=== PATIENT | female | born 1980 ===

== ENCOUNTER 2016-08-13 12:16 | Emergency (ER) | payer OTHER, SELFPAY ==
[2016-08-13 12:16] VITALS: BMI 36.6
[2016-08-13 12:30] VITALS: RESP 18; TEMP 99
--- NOTE | 2016-08-13 12:37 | ED PDOC ---
HPI: Female Pain Time Seen by Provider: 08/13/16 12:36 Chief Complaint (Nursing): Female Genitourinary Chief Complaint (Provider): with pain and bleeding History Per: Patient Additional Complaint(s): 36 year old female , currently (? weeks) presents to ED with cramping abd pain and vaginal bleeding that started today. Patient went to a new primary doctor today and test was positive so she was sent to ED for rule out threatened . She states the pain comes and goes in waves and currently she has no pain. She states bleeding has been light since this morning. She has no history of previous miscarriages or ectopic . Past Medical History Reviewed: Historical Data, Nursing Documentation, Vital Signs Vital Signs: Last Vital Signs Temp 99 F 08/13/16 12:28 Pulse 72 08/13/16 12:28 Resp 18 08/13/16 12:28 BP 134/89 08/13/16 12:28 Pulse Ox 100 08/13/16 12:28 - Medical History PMH: Migraine - Surgical History Surgical History: (x 1) - Family History Family History: States: No Known Family Hx - Living Arrangements Living Arrangements: With Family - Social History Current smoker - smoking cessation education provided: No Alcohol: None Drugs: Denies - Home Medications Home Medications: Ambulatory Orders Medication Instructions Recorded Acetaminophen/Hydrocodone Bi 1 tab PO QID PRN #10 tab 10/10/14 [Vicodin 300 mg-5 mg] Ciprofloxacin HCl [Cipro] 500 mg PO BID 10 Days 10/10/14 Metronidazole [Flagyl] 500 mg PO QID 10 Days 10/10/14 Unobtainable 11/22/15 - Allergies Allergies/Adverse Reactions: Allergies Allergy/AdvReac Type Severity Reaction Status Date / Time No Known Allergies Allergy Verified 10/10/14 05:56 Review of Systems ROS Statement: Except As Marked, All Systems Reviewed And Found Negative Genitourinary Female: Positive for: Vaginal Bleeding, Pelvic Pain, Other (? weeks with abdominal pain) Physical Exam - Reviewed Nursing Documentation Reviewed: Yes Vital Signs Reviewed: Yes - Physical Exam Appears: Positive for: Well, Non-toxic, No Acute Distress Cardiovascular/Chest: Positive for: Regular Rate, Rhythm Respiratory: Positive for: Normal Breath Sounds Gastrointestinal/Abdominal: Positive for: Soft, Other (obese nontender abdomen) . Negative for: Tenderness, Distended, Guarding, Rebound Extremity: Negative for: Pedal Edema Neurologic/Psych: Positive for: Alert, Oriented - Laboratory Results Result Diagrams: 08/13/16 13:12 08/13/16 13:12 Urine POC: Negative - ECG O2 Sat by Pulse Oximetry: 100 Pulse Ox Interpretation: Normal - Other Rad OB TV US X-Ray: Read By Radiologist X-Ray Interpretation: see below Medical Decision Making Medical Decision Makin36 year old female, with abbdominal pain Plan: Urine dip and test CBC CMP Blood type IVF OB US Urine test is negative, serum beta is negative. US: IMPRESSION: 3.8 x 2.5 centimeter cystic lesion at the left adnexa. Follow- up reassessment is suggested. Retroverted uterus. Patient is aware of diagnostic test results, all questions answered. Patient was referred to women's clinic for follow Disposition - Clinical Impression Clinical Impression: Vaginal bleeding, Ovarian cyst - Patient ED Disposition Is Patient to be Admitted: No Counseled Patient/Family Regarding: Studies Performed, Diagnosis, Need For Followup - Disposition Referrals: [facility] [Outside] Disposition: Routine/Home Disposition Time: 15:54 Condition: STABLE Additional Instructions: Tylenol for pain as needed. Follow-up with women's clinic. Instructions: Ovarian Cyst (ED), Dysfunctional Uterine Bleeding (ED) Print Language: CHINESE Results - Lab Results Lab Results: 08/13/16 08/13/16 08/13/16 13:12 13:12 13:12 WBC 10.1 RBC 4.07 Hgb 12.6 Hct 37.6 MCV 92.5 MCH 30.9 MCHC 33.5 RDW 13.4 Plt Count 200 MPV 9.4 Neut % (Auto) 49.6 L Lymph % (Auto) 29.1 [place] % (Auto) 4.8 Eos % (Auto) 15.9 H Baso % (Auto) 0.6 Neut # 5.0 Lymph # 2.9 [place] # 0.5 Eos # 1.6 H Baso # 0.1 Sodium 140 Potassium 4.2 Chloride 108 H Carbon Dioxide 23 Anion Gap 13 BUN 11 Creatinine 0.6 L Est GFR ( Amer) > 60 Est GFR (Non-Af Amer) > 60 Random Glucose 95 Calcium 9.5 Total Bilirubin 0.4 AST 20 ALT 23 Alkaline Phosphatase 71 Total Protein 7.3 Albumin 4.1 Globulin 3.2 Albumin/Globulin Ratio 1.3 Beta HCG, Quant < 2.39 Blood Type O POSITIVE Antibody Screen Negative BBK History Checked Patient has bt
[2016-08-13] MEDS ORDERED: Sodium Chloride 0.9% 1,000 ML IV STA (13:01)
[2016-08-13 13:30] LABS: BASO # 0.1 K/uL (0.0-0.2); BASO % 0.6 % (0.0-2.0); EOS # 1.6 K/uL (0.0-0.7); EOS % 15.9 % (0.0-4.0); HEMATOCRIT 37.6 % (34.0-47.0); LYMPH # 2.9 K/uL (1.0-4.3); LYMPH % 29.1 % (20.0-40.0); MEAN CELL VOLUME 92.5 fl (81.0-99.0); MEAN CORPUSCULAR HEMOGLOBIN 30.9 pg (27.0-31.0); MEAN CORPUSCULAR HGB CONC 33.5 g/dL (33.0-37.0); MEAN PLATELET VOLUME 9.4 fl (7.2-11.7); MONO # 0.5 K/uL (0.0-0.8); MONO % 4.8 % (0.0-10.0); NEUT % 49.6 % (50.0-75.0); RED CELL DISTRIBUTION WIDTH 13.4 % (11.5-14.5); WHITE BLOOD COUNT 10.1 K/uL (4.8-10.8)
[2016-08-13 14:07] LABS: CHLORIDE 108 mmol/L (98-107)
[2016-08-13 14:08] LABS: POTASSIUM 4.2 MMOL/L (3.6-5.0); SODIUM 140 mmol/l (132-148)
[2016-08-13 14:10] LABS: AST/SGOT 20 U/L (14-36); BILIRUBIN,TOTAL 0.4 mg/dl (0.2-1.3); CARBON DIOXIDE 23 mmol/L (22-30); GFR AFRICAN-AMERICAN > 60
[2016-08-13 14:11] LABS: ALB/GLOB RATIO 1.3 (1.0-2.1); ALKALINE PHOSPHATASE 71 U/L (38-126); ALT/SGPT 23 U/L (9-52); BLOOD UREA NITROGEN 11 mg/dl (7-17); CALCIUM 9.5 mg/dL (8.4-10.2); GLUCOSE,RANDOM 95 mg/dL (65-105); TOTAL PROTEIN 7.3 G/DL (6.3-8.2)
--- NOTE | 2016-08-13 15:00 | US ---
HISTORY: early , pain and bleeding, ? weeks COMPARISON: Comparison is made to the previous study dated 10/10/2014 TECHNIQUE: Endovaginal ultrasound examination of the pelvis FINDINGS: UTERUS: Measures 7.4 x 5.7 x 4.4 cm. Retroverted uterus but otherwise normal in size and appearance. No fibroid or other mass lesion seen. ENDOMETRIUM: Measures 4.2 mm in diameter. Unremarkable. CERVIX: No cervical abnormality identified. RIGHT OVARY: Measures 2.6 x 1.8 x 1.9 cm. No solid mass. Normal flow. LEFT OVARY: Measures 3.1 x 4.7 x 3.4 cm. No solid mass. Normal flow. There is anechoic cystic lesion at the left adnexa measures 2.5 x 3.8 x 2.6 cm. FREE FLUID: No significant free fluid noted. OTHER FINDINGS: None. IMPRESSION: 3.8 x 2.5 centimeter cystic lesion at the left adnexa. Follow-up reassessment is suggested. Retroverted uterus.
[2016-08-13 16:09] VITALS: BP 110/68; PULSE 82; O2SAT 99
== END 2016-08-13 16:09 | disposition home or self-care (01) ==
LOC: H.ER 12:16
DX: O26.891 Other specified pregnancy related conditions, first trimester (principal); N83.209 Unspecified ovarian cyst, unspecified side

== ENCOUNTER 2016-09-21 21:58 | Emergency (ER) | payer OTHER ==
[2016-09-21 21:58] VITALS: BMI 36.6
[2016-09-21 22:16] VITALS: BP 125/72; PULSE 70; RESP 16; TEMP 98.1; O2SAT 99
--- NOTE | 2016-09-21 22:53 | ED PDOC ---
HPI: General Adult Time Seen by Provider: 09/21/16 22:24 Chief Complaint (Nursing): Headache Chief Complaint (Provider): LONGO History Per: Patient History/Exam Limitations: no limitations Additional Complaint(s): 36yo F in ED for eval of left sided eye redness, migraine and rash to [place] with body aches, malaise an subjective fever x 1 days without sick contacts. states she has traveled outside the country, no abd pain, cough, rhionorrhea, change in BM, hematuira. admits to hx of migraines. today without the worst LONGO of her life, no nausea vomiting vision changes. Past Medical History Reviewed: Historical Data, Nursing Documentation, Vital Signs Vital Signs: Last Vital Signs Temp 98.1 F 09/21/16 22:14 Pulse 70 09/21/16 22:14 Resp 16 09/21/16 22:14 BP 125/72 09/21/16 22:14 Pulse Ox 99 09/21/16 22:14 - Medical History PMH: Migraine - Surgical History Surgical History: (x 1) - Family History Family History: States: No Known Family Hx - Immunization History Hx Tetanus Toxoid Vaccination: Yes Hx Influenza Vaccination: No Hx Pneumococcal Vaccination: No - Home Medications Home Medications: Ambulatory Orders Medication Instructions Recorded Acetaminophen/Hydrocodone Bi 1 tab PO QID PRN #10 tab 10/10/14 [Vicodin 300 mg-5 mg] Ciprofloxacin HCl [Cipro] 500 mg PO BID 10 Days 10/10/14 Metronidazole [Flagyl] 500 mg PO QID 10 Days 10/10/14 Polymyxin/Trimethoprim Sulfate 1 - 2 drop OD DAILY #1 bottle 09/21/16 [Polytrim Ophth Soln] SUMAtriptan [Imitrex] 50 mg PO DAILY PRN #30 tab 09/21/16 - Allergies Allergies/Adverse Reactions: Allergies Allergy/AdvReac Type Severity Reaction Status Date / Time No Known Allergies Allergy Verified 10/10/14 05:56 Review of Systems ROS Statement: Except As Marked, All Systems Reviewed And Found Negative Constitutional: Positive for: Fever, Chills, Malaise Eyes: Positive for: Redness Physical Exam - Reviewed Nursing Documentation Reviewed: Yes Vital Signs Reviewed: Yes - Physical Exam Appears: Positive for: Non-toxic, No Acute Distress Head Exam: Positive for: ATRAUMATIC, NORMAL INSPECTION, NORMOCEPHALIC Skin: Positive for: Warm, Rash (papaular rash noted to face b/l no vesicles noted non itchy no excoriation and nontender) Eye Exam: Positive for: EOMI, PERRL, Conjunctival injection (left side) ENT: Positive for: Normal ENT Inspection, TM Is/Are (NAD). Negative for: Sinus Pain/Drainage, Nasal Congestion, Pharyngeal Erythema, Tonsillar Exudate, Tonsillar Swelling Neck: Positive for: Normal, Painless ROM Cardiovascular/Chest: Positive for: Regular Rate, Rhythm Respiratory: Positive for: CNT, Normal Breath Sounds Gastrointestinal/Abdominal: Positive for: Normal Exam, Bowel Sounds, Soft. Negative for: Tenderness Neurologic/Psych: Positive for: Alert, contract attorney II-XII (intact), Oriented, Cerebellar Tests (normal), Gait (intact). Negative for: Motor/Sensory Deficits - ECG O2 Sat by Pulse Oximetry: 99 Medical Decision Making Medical Decision Making: impression: Viral illness, [place] lamp wth stain- negative for uptake no corneal ulceration noted. lid inversion performed no FFB noted. pt given polytrim and imitrexs req. by pt) for Migraines. advised to have pmd f.u pt with stable vS Disposition - Clinical Impression Clinical Impression: Viral infection, Headache - Patient ED Disposition Is Patient to be Admitted: No Counseled Patient/Family Regarding: Diagnosis, Need For Followup, Rx Given - Disposition Referrals: [facility] [Outside] Disposition: Routine/Home Disposition Time: 22:44 Condition: STABLE Prescriptions: Polymyxin/Trimethoprim Sulfate [Polytrim Ophth Soln] 1 - 2 drop OD DAILY #1 bottle SUMAtriptan [Imitrex] 50 mg PO DAILY PRN #30 tab PRN Reason: Headache Instructions: Viral Syndrome (ED) Print Language: GREENLANDIC
== END 2016-09-21 23:02 | disposition home or self-care (01) ==
LOC: H.ER 21:58
DX: R51 Headache (principal); B34.9 Viral infection, unspecified; R21 Rash and other nonspecific skin eruption; R50.9 Fever, unspecified

== ENCOUNTER 2016-12-10 07:12 | Emergency (ER) | payer SELFPAY ==
[2016-12-10 07:12] VITALS: BMI 36.6
[2016-12-10 07:40] VITALS: TEMP 98
[2016-12-10] MEDS ORDERED: Sodium Chloride 0.9% 1,000 ML IV STA (07:55)
--- NOTE | 2016-12-10 07:59 | ED PDOC ---
HPI: Abdomen Time Seen by Provider: 12/10/16 07:50 Chief Complaint (Nursing): Abdominal Pain Chief Complaint (Provider): Abdominal Pain History Per: Patient History/Exam Limitations: no limitations Onset/Duration Of Symptoms: Days (x5 days) Current Symptoms Are (Timing): Still Present Additional Complaint(s): 36 y/o female presents to the emergency department with an epigastric abdominal pain associated with nausea and diarrhea since 12/06/2016. Denies fever or bloody stools. Past Medical History Reviewed: Historical Data, Nursing Documentation, Vital Signs Vital Signs: Last Vital Signs Temp 98.0 F 12/10/16 07:38 Pulse 66 12/10/16 07:38 Resp 19 12/10/16 07:38 BP 123/61 12/10/16 07:38 Pulse Ox 100 12/10/16 08:01 - Medical History PMH: Migraine - Surgical History Surgical History: (x 1) - Family History Family History: States: Unknown Family Hx - Immunization History Hx Tetanus Toxoid Vaccination: Yes Hx Influenza Vaccination: No Hx Pneumococcal Vaccination: No - Home Medications Home Medications: Ambulatory Orders Medication Instructions Recorded Acetaminophen/Hydrocodone Bi 1 tab PO QID PRN #10 tab 10/10/14 [Vicodin 300 mg-5 mg] Ciprofloxacin HCl [Cipro] 500 mg PO BID 10 Days 10/10/14 Metronidazole [Flagyl] 500 mg PO QID 10 Days 10/10/14 Polymyxin/Trimethoprim Sulfate 1 - 2 drop OD DAILY #1 bottle 09/21/16 [Polytrim Ophth Soln] SUMAtriptan [Imitrex] 50 mg PO DAILY PRN #30 tab 09/21/16 Ondansetron [Zofran] 4 mg PO Q8H #10 tab 12/10/16 Pantoprazole Sodium [Protonix] 40 mg PO DAILY #30 tablet. 12/10/16 - Allergies Allergies/Adverse Reactions: Allergies Allergy/AdvReac Type Severity Reaction Status Date / Time No Known Allergies Allergy Verified 10/10/14 05:56 Review of Systems ROS Statement: Except As Marked, All Systems Reviewed And Found Negative Constitutional: Negative for: Fever Gastrointestinal: Positive for: Nausea, Abdominal Pain (Epigastric region), Diarrhea. Negative for: Hematochezia Physical Exam - Reviewed Nursing Documentation Reviewed: Yes Vital Signs Reviewed: Yes - Physical Exam Appears: Positive for: Non-toxic, No Acute Distress Head Exam: Positive for: ATRAUMATIC, NORMAL INSPECTION, NORMOCEPHALIC Skin: Positive for: Normal Color, Warm, Dry Neck: Positive for: Normal, Supple Cardiovascular/Chest: Positive for: Regular Rate, Rhythm. Negative for: Murmur Respiratory: Positive for: Normal Breath Sounds. Negative for: Accessory Muscle Use, Respiratory Distress Gastrointestinal/Abdominal: Positive for: Soft, Tenderness (Mild epigastric tenderness). Negative for: Normal Exam Neurologic/Psych: Positive for: Alert, Oriented (x3) - Laboratory Results Result Diagrams: 12/10/16 08:24 12/10/16 08:53 - ECG O2 Sat by Pulse Oximetry: 100 (RA) Pulse Ox Interpretation: Normal Medical Decision Making Medical Decision Making: Time: 07:55 Initial impression: Abdominal Pain Initial plan: --CMP --Urine DIP & Preg --CBC w/ diff --Bentyl 10 mg PO --Pepcid 20 mg IVP --Zofran 4 mg IVP --Sodium Chloride 1L IV 100 mls/hr --Reevaluation Scribe Attestation: Documented by Becca Flores, acting as a scribe for Dick Robin MD. Provider Scribe Attestation: All medical record entries made by the Scribe were at my direction and personally dictated by me. I have reviewed the chart and agree that the record accurately reflects my personal performance of the history, physical exam, medical decision making, and the department course for this patient. I have also personally directed, reviewed, and agree with the discharge instructions and disposition. Disposition - Clinical Impression Clinical Impression: Gastritis - Patient ED Disposition Is Patient to be Admitted: No - Disposition Referrals: FAMILY PROVIDER,NO [Primary Care Provider] - Disposition: Routine/Home Disposition Time: 10:59 Condition: FAIR Prescriptions: Ondansetron [Zofran] 4 mg PO Q8H #10 tab Pantoprazole Sodium [Protonix] 40 mg PO DAILY #30 tablet. Instructions: Gastritis (ED) Forms: [employer] (Rwandan)
[2016-12-10 08:28] LABS: BASO # 0.1 K/uL (0.0-0.2); BASO % 0.7 % (0.0-2.0); EOS # 0.9 K/uL (0.0-0.7); EOS % 10.8 % (0.0-4.0); HEMATOCRIT 36.9 % (34.0-47.0); LYMPH # 2.8 K/uL (1.0-4.3); LYMPH % 32.6 % (20.0-40.0); MEAN CORPUSCULAR HEMOGLOBIN 31.3 pg (27.0-31.0); MEAN CORPUSCULAR HGB CONC 34.1 g/dL (33.0-37.0); MEAN PLATELET VOLUME 9.6 fl (7.2-11.7); MONO # 0.5 K/uL (0.0-0.8); MONO % 5.3 % (0.0-10.0); NEUT # 4.4 K/uL (1.8-7.0); NEUT % 50.6 % (50.0-75.0); WHITE BLOOD COUNT 8.7 K/uL (4.8-10.8)
[2016-12-10 09:11] LABS: ALB/GLOB RATIO 1.4 (1.0-2.1); ALKALINE PHOSPHATASE 53 U/L (38-126); ALT/SGPT 24 U/L (9-52); AST/SGOT 20 U/L (14-36); BILIRUBIN,TOTAL 0.5 mg/dl (0.2-1.3); BLOOD UREA NITROGEN 9 mg/dl (7-17); CALCIUM 9.5 mg/dL (8.4-10.2); CARBON DIOXIDE 25 mmol/L (22-30); CHLORIDE 107 mmol/L (98-107); GFR AFRICAN-AMERICAN > 60; GLUCOSE,RANDOM 84 mg/dL (65-105); POTASSIUM 4.8 MMOL/L (3.6-5.0); SODIUM 141 mmol/l (132-148); TOTAL PROTEIN 7.3 G/DL (6.3-8.2)
[2016-12-10 11:20] VITALS: BP 114/67; PULSE 61; RESP 16; O2SAT 99
== END 2016-12-10 11:19 | disposition home or self-care (01) ==
LOC: H.ER 07:12 → SUPCPDRO 07:12 → H.ER 11:19
DX: K29.70 Gastritis, unspecified, without bleeding (principal)
CPT/HCPCS: 80053; 81025; 85025; 96361; 96374; 96375; 99284; J2405; J7040

== ENCOUNTER 2017-10-04 20:26 | Emergency (ER) | payer SELFPAY ==
[2017-10-04 20:26] VITALS: BMI 36.6
[2017-10-04 20:36] VITALS: RESP 18; TEMP 98.7; O2SAT 100
[2017-10-04] MEDS ORDERED: Magnesium Sulfate 2 gm/50 ml 2 GM/50 ML BAG IV STA (21:07)
[2017-10-04] MEDS ORDERED: Sodium Chloride 0.9% 1,000 ML IV STA (21:07)
[2017-10-04] MEDS ORDERED: Magnesium Sulfate 2 gm/50 ml 2 GM/50 ML BAG ONE (21:34)
--- NOTE | 2017-10-04 21:42 | ED PDOC ---
HPI: Headache Time Seen by Provider: 10/04/17 20:39 Chief Complaint (Nursing): Headache Chief Complaint (Provider): Headache History Per: Patient History/Exam Limitations: no limitations Onset/Duration Of Symptoms: Days (x1) Current Symptoms Are (Timing): Still Present Quality: "Pain" Additional Complaint(s): 37 year old female with a history of migraines presents to the ED with a headache that developed this morning. She reports she took imitrex with minimal relief. Patient states that headache is 8 out of 10 in severity. Headache is consistent with past migraines. She has photosensitivity and nausea but denies vomiting, neck pain, fever, cough, chest pain, shortness of breath, or other medical complaints. PMD: Dr. Joce Hendrickson Past Medical History Reviewed: Historical Data, Nursing Documentation, Vital Signs Vital Signs: Last Vital Signs Temp 98.7 F 10/04/17 20:32 Pulse 72 10/04/17 20:32 Resp 18 10/04/17 20:32 BP 152/82 H 10/04/17 20:32 Pulse Ox 100 10/04/17 20:32 - Medical History PMH: Migraine - Surgical History Surgical History: (x 1) - Family History Family History: States: Unknown Family Hx - Social History Current smoker - smoking cessation education provided: No Ex-Smoker (has not smoked in the last 12 months): No Alcohol: None Drugs: Denies - Immunization History Hx Tetanus Toxoid Vaccination: Yes Hx Influenza Vaccination: No Hx Pneumococcal Vaccination: No - Home Medications Home Medications: Ambulatory Orders Medication Instructions Recorded Acetaminophen/Hydrocodone Bi 1 tab PO QID PRN #10 tab 10/10/14 [Vicodin 300 mg-5 mg] Ciprofloxacin HCl [Cipro] 500 mg PO BID 10 Days tab 10/10/14 Metronidazole [Flagyl] 500 mg PO QID 10 Days tab 10/10/14 Polymyxin/Trimethoprim Sulfate 1 - 2 drop OD DAILY #1 bottle 09/21/16 [Polytrim Ophth Soln] SUMAtriptan [Imitrex] 50 mg PO DAILY PRN #30 tab 09/21/16 Ondansetron [Zofran] 4 mg PO Q8H #10 tab 12/10/16 Pantoprazole Sodium [Protonix] 40 mg PO DAILY #30 tablet. 12/10/16 - Allergies Allergies/Adverse Reactions: Allergies Allergy/AdvReac Type Severity Reaction Status Date / Time No Known Allergies Allergy Verified 10/04/17 20:32 Review of Systems ROS Statement: Except As Marked, All Systems Reviewed And Found Negative Gastrointestinal: Positive for: Nausea Neurological: Positive for: Headache Physical Exam - Reviewed Nursing Documentation Reviewed: Yes Vital Signs Reviewed: Yes - Physical Exam Appears: Positive for: Uncomfortable Head Exam: Positive for: ATRAUMATIC, NORMOCEPHALIC Skin: Positive for: Normal Color, Warm, Dry Eye Exam: Positive for: EOMI, Normal appearance, PERRL Neck: Positive for: Normal, Painless ROM, Supple Cardiovascular/Chest: Positive for: Regular Rate, Rhythm. Negative for: Murmur Respiratory: Positive for: Normal Breath Sounds. Negative for: Respiratory Distress Gastrointestinal/Abdominal: Positive for: Normal Exam, Soft. Negative for: Tenderness Extremity: Positive for: Normal ROM (upper and lower extremities). Negative for : Deformity, Swelling Neurologic/Psych: Positive for: Alert, Oriented (x3), Other (no photophobia) - Laboratory Results Result Diagrams: 10/04/17 21:48 10/04/17 21:48 - ECG O2 Sat by Pulse Oximetry: 100 (RA) Pulse Ox Interpretation: Normal Medical Decision Making Medical Decision Making: Time: 21:06 Initial Impression: Headache, setting of known migraine Initial Plan: --BMP --Urine preg --Urine dip --CBC with differentials --Magnesium sulfate --NS --Reglan --Toradol 30 mg IV Labs reviewed and revealed no clinically significant abnormalities. Time: 23:02 -- Patient reports resolution of headache. She is stable for discharge. Diagnosis is migraine. Return to the ED if symptoms persist or worsen. Scribe Attestation: Documented by Alanna De Luna, acting as a scribe for Pierre Steve MD Provider Scribe Attestation: All medical record entries made by the Scribe were at my direction and personally dictated by me. I have reviewed the chart and agree that the record accurately reflects my personal performance of the history, physical exam, medical decision making, and the department course for this patient. I have also personally directed, reviewed, and agree with the discharge instructions and disposition. Disposition - Clinical Impression Clinical Impression: Migraine - Patient ED Disposition Is Patient to be Admitted: No - Disposition Disposition: Routine/Home Disposition Time: 23:02 Condition: STABLE Additional Instructions: MELVIN BANSAL, thank you for letting us take care of you today. Your provider was Pierre Steve MD and you were treated for HEADACHE. The emergency medical care you received today was directed at your acute symptoms. If you were prescribed any medication, please fill it and take as directed. It may take several days for your symptoms to resolve. Return to the Emergency Department if your symptoms worsen, do not improve, or if you have any other problems. Please contact your doctor or call one of the physicians/clinics you have been referred to that are listed on the Patient Visit Information form that is included in your discharge packet. Bring any paperwork you were given at discharge with you along with any medications you are taking to your follow up visit. Our treatment cannot replace ongoing medical care by a primary care provider outside of the emergency department. Thank you for allowing the [facility] team to be part of your care today. If you had an X-Ray or CT scan: A Radiologist will review the ED reading if any change in treatment is needed we will contact you. If you had a blood, urine, or wound culture: It will take several days for the results, if any change in treatment is needed we will contact you. If you had an STI test: It will take 48 hours for the results. Please call after 1 week if you have not heard back. Instructions: Migraine Headaches in Adults Forms: [employer] (Puerto Rican) Print Language: SERBIAN
[2017-10-04 21:57] LABS: BASO # 0.1 K/uL (0.0-0.2); BASO % 0.7 % (0.0-2.0); EOS # 0.9 K/uL (0.0-0.7); EOS % 9.5 % (0.0-4.0); HEMOGLOBIN 13.4 g/dL (12.0-16.0); LYMPH # 2.6 K/uL (1.0-4.3); LYMPH % 27.7 % (20.0-40.0); MEAN CELL VOLUME 92.2 fl (81.0-99.0); MEAN CORPUSCULAR HEMOGLOBIN 31.6 pg (27.0-31.0); MEAN CORPUSCULAR HGB CONC 34.2 g/dL (33.0-37.0); MEAN PLATELET VOLUME 9.1 fl (7.2-11.7); MONO # 0.6 K/uL (0.0-0.8); MONO % 6.1 % (0.0-10.0); NEUT # 5.3 K/uL (1.8-7.0); RBC 4.23 Mil/uL (3.80-5.20); RED CELL DISTRIBUTION WIDTH 13.4 % (11.5-14.5); WHITE BLOOD COUNT 9.4 K/uL (4.8-10.8)
[2017-10-04 22:07] LABS: BLOOD UREA NITROGEN 13 mg/dl (7-17); CALCIUM 9.4 mg/dL (8.4-10.2); GFR AFRICAN-AMERICAN > 60; GFR NON-AFRICAN AMERICAN > 60
[2017-10-04 23:44] VITALS: BP 120/60; PULSE 80
== END 2017-10-04 23:52 | disposition home or self-care (01) ==
LOC: H.ER 20:26
DX: G43.909 Migraine, unspecified, not intractable, without status migrainosus (principal)
CPT/HCPCS: 80048; 81025; 85025; 96365; 96367; 96375; 99285; J1885; J2765; J7030

== ENCOUNTER 2017-11-08 13:44 | Emergency (ER) | payer SELFPAY ==
[2017-11-08 13:44] VITALS: BMI 36.6
[2017-11-08] MEDS ORDERED: Sodium Chloride 0.9% 1,000 ML IV STA (15:22)
[2017-11-08] MEDS ORDERED: Alum-Mag Hydrox-Simethicone Susp (30 mL) PO STA (15:22)
[2017-11-08] MEDS ORDERED: Alum-Mag Hydrox-Simethicone Susp (30 mL) ONE (15:32)
[2017-11-08 16:13] LABS: BASO # 0.1 K/uL (0.0-0.2); BASO % 0.9 % (0.0-2.0); EOS # 0.9 K/uL (0.0-0.7); EOS % 11.8 % (0.0-4.0); LYMPH # 2.2 K/uL (1.0-4.3); LYMPH % 29.9 % (20.0-40.0); MEAN CELL VOLUME 92.1 fl (81.0-99.0); MEAN CORPUSCULAR HEMOGLOBIN 31.2 pg (27.0-31.0); MEAN CORPUSCULAR HGB CONC 33.9 g/dL (33.0-37.0); MONO # 0.5 K/uL (0.0-0.8); MONO % 6.4 % (0.0-10.0); NEUT # 3.8 K/uL (1.8-7.0); RBC 4.18 Mil/uL (3.80-5.20); RED CELL DISTRIBUTION WIDTH 13.1 % (11.5-14.5); WHITE BLOOD COUNT 7.5 K/uL (4.8-10.8)
[2017-11-08 16:14] LABS: SQUAMOUS EPITHIAL 2 /hpf (0-5); URINE BACTERIA OCC (<OCC); URINE BILIRUBIN NEGATIVE (NEGATIVE); URINE BLOOD MODERATE (NEGATIVE); URINE CLARITY SLIGHTY-CLOUDY (Clear); URINE COLOR YELLOW (YELLOW); URINE GLUCOSE (UA) NEG (Normal); URINE LEUKOCYTE ESTERASE NEG Leu/uL (Negative); URINE PROTEIN NEGATIVE (NEGATIVE); URINE UROBILINOGEN 0.2-1.0 mg/dL (0.2-1.0)
--- NOTE | 2017-11-08 16:26 | US ---
Date of service: 11/08/2017 HISTORY: epigastric and RUQ pain COMPARISON: None. TECHNIQUE: Sonographic evaluation of the right upper quadrant of the abdomen. FINDINGS: LIVER: Measures 15.4 cm in length. Patent portal vein. Portal venous flow: Hepatopetal. Unremarkable echogenicity of the liver parenchyma. No mass. No intrahepatic bile duct dilatation. GALLBLADDER: Unremarkable. No gallstones. COMMON BILE DUCT: Measures 4.5 mm. No stones. No dilatation. PANCREAS: Unremarkable as visualized. No mass. No ductal dilatation. RIGHT KIDNEY: Measures 5.6 x 11.9 cm in length. Normal echogenicity. No calculus, mass, or hydronephrosis. AORTA: No aneurysmal dilatation. IVC: Unremarkable. OTHER FINDINGS: None . IMPRESSION: No significant or acute findings to account for/ related to the clinical presentation.
[2017-11-08 16:40] LABS: ALB/GLOB RATIO 1.2 (1.0-2.1); ALBUMIN 3.8 g/dL (3.5-5.0); ALT/SGPT 20 U/L (9-52); AST/SGOT 23 U/L (14-36); BLOOD UREA NITROGEN 10 mg/dl (7-17); CALCIUM 9.2 mg/dL (8.4-10.2); GFR AFRICAN-AMERICAN > 60; GFR NON-AFRICAN AMERICAN > 60; LIPASE 52 U/L (23-300)
--- NOTE | 2017-11-08 16:45 | ED PDOC ---
HPI: Abdomen Time Seen by Provider: 11/08/17 14:29 Chief Complaint (Nursing): Abdominal Pain Chief Complaint (Provider): Abdominal Pain History Per: Patient History/Exam Limitations: no limitations Onset/Duration Of Symptoms: Days (x 3) Outside of [place] travel?: No Current Symptoms Are (Timing): Still Present Location Of Pain/Discomfort: Epigastric Quality Of Discomfort: "Pain" Associated Symptoms: Vomiting, Diarrhea Alleviating Factors: None Additional Complaint(s): 37 year old female presents to the ED with epigastric abdominal pain that radiates to his chest for the last 3 days associated with multiple episodes of non bloody, non bilious vomiting and non bloody watery diarrhea. Patient reports taking Alkaseltzer with no relief. She is originally from [facility], now lives in the and refused a manager gallery. Denies shortness of breath , palpitations, hematemesis, melena, hematochezia, brbpr, fever, sick contacts and recent travel. PMD: none provided Past Medical History Reviewed: Historical Data, Nursing Documentation, Vital Signs Vital Signs: Last Vital Signs Temp 97.6 F 11/08/17 17:42 Pulse 58 L 11/08/17 17:42 Resp 16 11/08/17 17:42 BP 113/72 11/08/17 17:42 Pulse Ox 98 11/08/17 17:42 - Medical History PMH: Migraine - Surgical History Surgical History: (x 1) Denies: Cholecystectomy - Family History Family History: States: Unknown Family Hx - Immunization History Hx Tetanus Toxoid Vaccination: Yes Hx Influenza Vaccination: No Hx Pneumococcal Vaccination: No - Home Medications Home Medications: Ambulatory Orders Medication Instructions Recorded Acetaminophen/Hydrocodone Bi 1 tab PO QID PRN #10 tab 10/10/14 [Vicodin 300 mg-5 mg] Ciprofloxacin HCl [Cipro] 500 mg PO BID 10 Days tab 10/10/14 Metronidazole [Flagyl] 500 mg PO QID 10 Days tab 10/10/14 Polymyxin/Trimethoprim Sulfate 1 - 2 drop OD DAILY #1 bottle 09/21/16 [Polytrim Ophth Soln] SUMAtriptan [Imitrex] 50 mg PO DAILY PRN #30 tab 09/21/16 Ondansetron [Zofran] 4 mg PO Q8H #10 tab 12/10/16 Pantoprazole Sodium [Protonix] 40 mg PO DAILY #30 tablet. 12/10/16 Famotidine [Pepcid] 1 - 2 tab PO DAILY PRN #20 tab 11/08/17 Ondansetron ODT [Zofran ODT] 4 mg PO TID #20 odt 11/08/17 - Allergies Allergies/Adverse Reactions: Allergies Allergy/AdvReac Type Severity Reaction Status Date / Time No Known Allergies Allergy Verified 10/04/17 20:32 Physical Exam - Reviewed Nursing Documentation Reviewed: Yes Vital Signs Reviewed: Yes - Physical Exam Appears: Positive for: No Acute Distress Head Exam: Positive for: ATRAUMATIC, NORMAL INSPECTION, NORMOCEPHALIC Skin: Positive for: Normal Color, Warm, Dry Eye Exam: Positive for: Normal appearance. Negative for: Scleral icterus Cardiovascular/Chest: Positive for: Regular Rate, Rhythm. Negative for: Murmur Respiratory: Positive for: Normal Breath Sounds. Negative for: Wheezing, Respiratory Distress Gastrointestinal/Abdominal: Positive for: Soft, Tenderness (mild epigastric and RUQ tenderness). Negative for: Other (Kay's sign) Back: Positive for: Normal Inspection. Negative for: L CVA Tenderness, R CVA Tenderness Neurologic/Psych: Positive for: Alert, Oriented (x 3). Negative for: Motor/ Sensory Deficits - Laboratory Results Result Diagrams: 11/08/17 15:40 11/08/17 15:40 - ECG ECG: Positive for: Interpreted By Me ECG Rhythm: Positive for: Sinus Bradycardia. Negative for: ST/T Changes Rate: 58 O2 Sat by Pulse Oximetry: 100 (RA) Pulse Ox Interpretation: Normal - Progress ED Course And Treament: On re-evaluation, pt. reports good relief of abdominal pain. Labs and imaging tests reviewed with patient. Agrees with care. Medical Decision Making Medical Decision Makin:22 Impression: abdominal pain r/o pancreatitis and cholecystitis Initial Plan: --EKG --CMP --CBC --Urine preg --Lipase --Maalox 30 ml PO --NS IV --Pepcid 40 mg IVP --Zofran Inj 4 mg IVP --Urine cx --UA --Abdomen US Abdomen US IMPRESSION: No significant or acute findings to account for/ related to the clinical presentation. ---- Scribe Attestation: Documented by Meghan Hernandez, acting as a scribe for Jimmie Gates PA-C Provider Scribe Attestation: All medical record entries made by the Scribe were at my direction and personally dictated by me. I have reviewed the chart and agree that the record accurately reflects my personal performance of the history, physical exam, medical decision making, and the department course for this patient. I have also personally directed, reviewed, and agree with the discharge instructions and disposition. Disposition - Clinical Impression Clinical Impression: Gastritis - Patient ED Disposition Is Patient to be Admitted: No - Disposition [facility]] Disposition: Routine/Home Disposition Time: 16:30 Condition: IMPROVED Additional Instructions: MELVIN BANSAL, thank you for letting us take care of you today. Your provider was Elke Segura MD and you were treated for ABD PAIN. The emergency medical care you received today was directed at your acute symptoms. If you were prescribed any medication, please fill it and take as directed. It may take several days for your symptoms to resolve. Return to the Emergency Department if your symptoms worsen, do not improve, or if you have any other problems. Please contact your doctor or call one of the physicians/clinics you have been referred to that are listed on the Patient Visit Information form that is included in your discharge packet. Bring any paperwork you were given at discharge with you along with any medications you are taking to your follow up visit. Our treatment cannot replace ongoing medical care by a primary care provider outside of the emergency department. Thank you for allowing the [facility] team to be part of your care today. If you had an X-Ray or CT scan: A Radiologist will review the ED reading if any change in treatment is needed we will contact you. If you had a blood, urine, or wound culture: It will take several days for the results, if any change in treatment is needed we will contact you. If you had an STI test: It will take 48 hours for the results. Please call after 1 week if you have not heard back. Prescriptions: Famotidine [Pepcid] 1 - 2 tab PO DAILY PRN #20 tab PRN Reason: gastritis Ondansetron ODT [Zofran ODT] 4 mg PO TID #20 odt Instructions: Gastritis (DC) Forms: [employer] (Lao)
[2017-11-08 17:19] VITALS: PULSE 58
[2017-11-08 18:07] VITALS: BP 113/72; RESP 16; TEMP 97.6
--- NOTE | 2017-11-09 09:17 | CARD ---
APPROVED REPORT Date of service: 11/08/2017 EKG Measurement Heart [id number] <Conclusion> Sinus bradycardia Otherwise normal ECG
[2017-11-10 15:00] VITALS: O2SAT 100
== END 2017-11-08 17:42 | disposition home or self-care (01) ==
LOC: H.ER 13:44
DX: K52.9 Noninfective gastroenteritis and colitis, unspecified (principal)
CPT/HCPCS: 76705; 80053; 81003; 81025; 83690; 85025; 87086; 93005; 96361; 96374; 96375; 99285; J2405; J7030

== ENCOUNTER 2017-11-22 13:31 | Emergency (ER) | payer SELFPAY ==
[2017-11-22 13:31] VITALS: BMI 36.6
[2017-11-22 13:39] VITALS: BP 136/78; PULSE 78; RESP 20; TEMP 98.8; O2SAT 98
[2017-11-22] MEDS ORDERED: Sodium Chloride 0.9% 1,000 ML IV STA (14:09)
[2017-11-22] MEDS ORDERED: cefTRIAXone (Rocephin) 1 gm Inj IVPB ONE (14:12)
--- NOTE | 2017-11-22 14:14 | ED PDOC ---
HPI: Abdomen Time Seen by Provider: 11/22/17 14:12 Chief Complaint (Nursing): Abdominal Pain Chief Complaint (Provider): ABD PAIN History Per: Patient ( 37 Y/O FEMALE HERE WITH ABRUPT ONSET OF RIGHT SIDED ABDOMINAL/BACK PAIN THAT BEGAN WHILE LAYING FLAT. PATIENT DENIES ANY VOMITING/ URINARY SYMPTOMS/FEVERS/CHILLS. NO ASSOCIATION WITH FOOD. H/O C SXN. WAS SEEN 11/09/2017 FOR ABDOMINAL PAIN BUT STATES TODAY'S PAIN IS DISSIMILAR. HAS HAD US ABD AT THAT TIME NEG FOR GALLSTONES/KIDNEY STONES.) Past Medical History Reviewed: Historical Data, Nursing Documentation, Vital Signs Vital Signs: Last Vital Signs Temp 98.8 F 11/22/17 13:35 Pulse 78 11/22/17 13:35 Resp 20 11/22/17 13:35 BP 136/78 11/22/17 13:35 Pulse Ox 98 11/22/17 18:08 - Medical History PMH: Migraine - Surgical History Surgical History: (x 1) Denies: Cholecystectomy - Family History Family History: States: Unknown Family Hx - Immunization History Hx Tetanus Toxoid Vaccination: Yes Hx Influenza Vaccination: No Hx Pneumococcal Vaccination: No - Home Medications Home Medications: Ambulatory Orders Medication Instructions Recorded Acetaminophen/Hydrocodone Bi 1 tab PO QID PRN #10 tab 10/10/14 [Vicodin 300 mg-5 mg] Ciprofloxacin HCl [Cipro] 500 mg PO BID 10 Days tab 10/10/14 Metronidazole [Flagyl] 500 mg PO QID 10 Days tab 10/10/14 Polymyxin/Trimethoprim Sulfate 1 - 2 drop OD DAILY #1 bottle 09/21/16 [Polytrim Ophth Soln] SUMAtriptan [Imitrex] 50 mg PO DAILY PRN #30 tab 09/21/16 Ondansetron [Zofran] 4 mg PO Q8H #10 tab 12/10/16 Pantoprazole Sodium [Protonix] 40 mg PO DAILY #30 tablet. 12/10/16 Famotidine [Pepcid] 1 - 2 tab PO DAILY PRN #20 tab 11/08/17 Ondansetron ODT [Zofran ODT] 4 mg PO TID #20 odt 11/08/17 Ciprofloxacin HCl [Cipro] 500 mg PO BID #14 tab 11/22/17 Naproxen 375 mg PO Q8 PRN #21 tablet 11/22/17 - Allergies Allergies/Adverse Reactions: Allergies Allergy/AdvReac Type Severity Reaction Status Date / Time No Known Allergies Allergy Verified 10/04/17 20:32 Review of Systems ROS Statement: Except As Marked, All Systems Reviewed And Found Negative Physical Exam - Reviewed Nursing Documentation Reviewed: Yes Vital Signs Reviewed: Yes - Physical Exam Appears: Positive for: Well, Non-toxic, No Acute Distress Head Exam: Positive for: ATRAUMATIC, NORMAL INSPECTION, NORMOCEPHALIC Skin: Positive for: Normal Color, Warm, DRY Eye Exam: Positive for: EOMI, Normal appearance, PERRL ENT: Positive for: Normal ENT Inspection Neck: Positive for: Normal, Painless ROM Cardiovascular/Chest: Positive for: Regular Rate, Rhythm Respiratory: Positive for: CNT, Normal Breath Sounds Gastrointestinal/Abdominal: Positive for: Normal Exam, Soft, Tenderness (RIGHT FLANK TENDERNESS/RUQ TENDERNESS) Back: Positive for: Normal Inspection Extremity: Positive for: Normal ROM Neurologic/Psych: Positive for: Alert, Oriented - Laboratory Results Result Diagrams: 11/22/17 14:22 11/22/17 14:22 Urine POC: Negative Urine dip results: Positive for: Leukocyte Esterase, Blood. Negative for: Nitrate, Ketones, Glucose, Bilirubin, Protein - ECG O2 Sat by Pulse Oximetry: 98 - Progress ED Course And Treament: CT abd/pelvis: IMPRESSION: No significant or acute findings to account for/ related to the clinical presentation. Additional benign and/or incidental findings described above. Disposition - Clinical Impression Clinical Impression: Pyelonephritis - Patient ED Disposition Is Patient to be Admitted: No - Disposition Disposition: Routine/Home Disposition Time: 18:07 Condition: FAIR Prescriptions: Ciprofloxacin HCl [Cipro] 500 mg PO BID #14 tab Naproxen 375 mg PO Q8 PRN #21 tablet PRN Reason: Pain, Moderate (4-7) Instructions: Kidney Infection (DC) Print Language: GREENLANDIC
[2017-11-22] MEDS ORDERED: cefTRIAXone (Rocephin) 1 gm Inj ONE (14:27)
[2017-11-22 14:37] LABS: BASO # 0.1 K/uL (0.0-0.2); BASO % 0.6 % (0.0-2.0); EOS % 8.4 % (0.0-4.0); HEMOGLOBIN 13.1 g/dL (12.0-16.0); LYMPH % 24.1 % (20.0-40.0); MEAN CELL VOLUME 92.3 fl (81.0-99.0); MEAN CORPUSCULAR HEMOGLOBIN 30.4 pg (27.0-31.0); MEAN CORPUSCULAR HGB CONC 32.9 g/dL (33.0-37.0); MEAN PLATELET VOLUME 9.3 fl (7.2-11.7); MONO # 0.8 K/uL (0.0-0.8); MONO % 6.2 % (0.0-10.0); NEUT # 7.5 K/uL (1.8-7.0); NEUT % 60.7 % (50.0-75.0); RBC 4.32 Mil/uL (3.80-5.20); RED CELL DISTRIBUTION WIDTH 13.3 % (11.5-14.5); WHITE BLOOD COUNT 12.3 K/uL (4.8-10.8)
[2017-11-22 14:58] LABS: ALB/GLOB RATIO 1.4 (1.0-2.1); ALBUMIN 4.3 g/dL (3.5-5.0); ALT/SGPT 21 U/L (9-52); AST/SGOT 37 U/L (14-36); BLOOD UREA NITROGEN 17 mg/dl (7-17); CALCIUM 9.5 mg/dL (8.4-10.2); GFR AFRICAN-AMERICAN > 60; GFR NON-AFRICAN AMERICAN > 60; LIPASE 84 U/L (23-300)
--- NOTE | 2017-11-22 17:43 | CT ---
Date of service: 11/22/2017 PROCEDURE: CT Abdomen and Pelvis without intravenous contrast HISTORY: Abdominal pain COMPARISON: 10/10/2014 CT abdomen and pelvis. 11/08/2017 abdominal ultrasound TECHNIQUE: Unenhanced study. Neither oral nor intravenous contrast administered. Radiation dose: Total exam DLP = 83.038 mGy-cm. This CT exam was performed using one or more of the following dose reduction techniques: Automated exposure control, adjustment of the mA and/or kV according to patient size, and/or use of iterative reconstruction technique. FINDINGS: LOWER THORAX: Unremarkable. LIVER: Unremarkable. No gross lesion or ductal dilatation. GALLBLADDER AND BILE DUCTS: Unremarkable. PANCREAS: Unremarkable. No gross lesion or ductal dilatation. SPLEEN: Unremarkable. ADRENALS: Unremarkable. No mass. KIDNEYS AND URETERS: Unremarkable. No hydronephrosis. No solid mass. VASCULATURE: Unremarkable. No aortic aneurysm. BOWEL: Constipation without fecal impaction or obstruction. APPENDIX: Unremarkable. Normal appendix. PERITONEUM: Unremarkable. No free fluid. No free air. LYMPH NODES: Unremarkable. No enlarged lymph nodes. BLADDER: Unremarkable. REPRODUCTIVE: Unremarkable. BONES: No acute fracture. OTHER FINDINGS: None. IMPRESSION: No significant or acute findings to account for/ related to the clinical presentation. Additional benign and/or incidental findings described above.
[2017-11-22 18:20] LABS: SQUAMOUS EPITHIAL 11 /hpf (0-5)
[2017-11-22 18:31] LABS: PH,URINE 6.5 (5.0-8.0); URINE BILIRUBIN NEGATIVE (NEGATIVE); URINE BLOOD TRACE (NEGATIVE); URINE CLARITY Clear (Clear); URINE COLOR LIGHT YELLOW (YELLOW); URINE GLUCOSE (UA) NEG (Normal); URINE LEUKOCYTE ESTERASE TRACE Leu/uL (Negative); URINE PROTEIN NEGATIVE (NEGATIVE); URINE UROBILINOGEN 0.2 mg/dL (0.2-1.0)
== END 2017-11-22 19:35 | disposition home or self-care (01) ==
LOC: H.ER 13:31
DX: N12 Tubulo-interstitial nephritis, not specified as acute or chronic (principal)
CPT/HCPCS: 74176; 80053; 81003; 81025; 83690; 85025; 87086; 96365; 96375; 99283; J0696; J1885; J7030

== ENCOUNTER 2017-11-24 21:52 | Emergency (ER) | payer SELFPAY ==
[2017-11-24 21:52] VITALS: BMI 36.6
[2017-11-24 22:34] VITALS: TEMP 98
--- NOTE | 2017-11-25 02:15 | ED PDOC ---
HPI: Abdomen Time Seen by Provider: 11/24/17 23:56 Chief Complaint (Nursing): Abdominal Pain Chief Complaint (Provider): Rib Pain History Per: Patient History/Exam Limitations: no limitations Onset/Duration Of Symptoms: Days (x7) Current Symptoms Are (Timing): Still Present Associated Symptoms: denies: Nausea, Vomiting, Urinary Symptoms Additional Complaint(s): Yojana Trujillo is a 37 year old female with a past medical history of migraines who is presenting to the ED with complaints of right rib pain, onset 1 week ago. Patient states that it is worse when taking deep breaths or turning from side to side. She reports no injury and a negative CT and ultrasound. Patient states that she is taking Cipro and Naproxen with minimal relief of symptoms. She denies any urinary symptoms, nausea, or vomiting. Of note, she is currently being treated for a UTI. PMD: [facility] Past Medical History Reviewed: Historical Data, Nursing Documentation, Vital Signs Vital Signs: Last Vital Signs Temp 98.0 F 11/24/17 22:29 Pulse 71 11/24/17 22:29 Resp 17 11/24/17 22:29 BP 119/70 11/24/17 22:29 Pulse Ox 98 11/25/17 02:19 - Medical History PMH: Migraine - Surgical History Surgical History: (x 1) Denies: Cholecystectomy - Family History Family History: States: Unknown Family Hx - Social History Current smoker - smoking cessation education provided: Yes Alcohol: Social Drugs: Denies - Immunization History Hx Tetanus Toxoid Vaccination: Yes Hx Influenza Vaccination: No Hx Pneumococcal Vaccination: No - Home Medications Home Medications: Ambulatory Orders Medication Instructions Recorded Acetaminophen/Hydrocodone Bi 1 tab PO QID PRN #10 tab 10/10/14 [Vicodin 300 mg-5 mg] Ciprofloxacin HCl [Cipro] 500 mg PO BID 10 Days tab 10/10/14 Metronidazole [Flagyl] 500 mg PO QID 10 Days tab 10/10/14 Polymyxin/Trimethoprim Sulfate 1 - 2 drop OD DAILY #1 bottle 09/21/16 [Polytrim Ophth Soln] SUMAtriptan [Imitrex] 50 mg PO DAILY PRN #30 tab 09/21/16 Ondansetron [Zofran] 4 mg PO Q8H #10 tab 12/10/16 Pantoprazole Sodium [Protonix] 40 mg PO DAILY #30 tablet. 12/10/16 Famotidine [Pepcid] 1 - 2 tab PO DAILY PRN #20 tab 11/08/17 Ondansetron ODT [Zofran ODT] 4 mg PO TID #20 odt 11/08/17 Ciprofloxacin HCl [Cipro] 500 mg PO BID #14 tab 11/22/17 Naproxen 375 mg PO Q8 PRN #21 tablet 11/22/17 Cyclobenzaprine [Cyclobenzaprine 10 mg PO BID #15 tab 11/25/17 HCl] - Allergies Allergies/Adverse Reactions: Allergies Allergy/AdvReac Type Severity Reaction Status Date / Time No Known Allergies Allergy Verified 10/04/17 20:32 Review of Systems ROS Statement: Except As Marked, All Systems Reviewed And Found Negative Gastrointestinal: Negative for: Nausea, Vomiting Genitourinary Female: Negative for: Other (urinary symptoms) Musculoskeletal: Positive for: Other (rib pain) Physical Exam - Reviewed Nursing Documentation Reviewed: Yes Vital Signs Reviewed: Yes - Physical Exam Appears: Positive for: Well, Non-toxic, No Acute Distress Head Exam: Positive for: ATRAUMATIC, NORMAL INSPECTION, NORMOCEPHALIC Skin: Positive for: Normal Color, Warm, DRY Eye Exam: Positive for: EOMI, Normal appearance, PERRL ENT: Positive for: Normal ENT Inspection Neck: Positive for: Normal, Painless ROM Cardiovascular/Chest: Positive for: Regular Rate, Rhythm. Negative for: Murmur Respiratory: Positive for: Normal Breath Sounds. Negative for: Respiratory Distress Gastrointestinal/Abdominal: Positive for: Normal Exam, Soft, Other (right lower rib cage tenderness to palpation ). Negative for: Tenderness, Mass, Distended, Guarding, Rebound Back: Positive for: Normal Inspection. Negative for: L CVA Tenderness, R CVA Tenderness, Vertebral Tenderness Extremity: Positive for: Normal ROM. Negative for: Pedal Edema, Deformity Neurologic/Psych: Positive for: Alert, Oriented. Negative for: Motor/Sensory Deficits - ECG O2 Sat by Pulse Oximetry: 98 (RA) Pulse Ox Interpretation: Normal Medical Decision Making Medical Decision Making: Time: 00:05 A/P: 37 year old female presenting with intercostal pain --not suspicious of intra-abdominal pathology, possible costochondritis --Will give NSAID and muscle relaxer and reevaluate Reevaluation: 1:45 --patient reports a significant improvement in symptoms --Upon provider evaluation, patient is stable and ready for discharge --Rib fracture unlikely given no trauma Scribe Attestation: Documented by Heather Xiao, acting as a scribe for Camilo Gardner MD. Provider Scribe Attestation: All medical record entries made by the Scribe were at my direction and personally dictated by me. I have reviewed the chart and agree that the record accurately reflects my personal performance of the history, physical exam, medical decision making, and the department course for this patient. I have also personally directed, reviewed, and agree with the discharge instructions and disposition. Disposition - Clinical Impression Clinical Impression: Rib pain - Patient ED Disposition Is Patient to be Admitted: No - Disposition Referrals: Liz Limon MD [Family Provider] - Disposition: Routine/Home Disposition Time: 02:26 Condition: IMPROVED Prescriptions: Cyclobenzaprine [Cyclobenzaprine HCl] 10 mg PO BID #15 tab Instructions: Bruised Rib (DC), Pleuritic Chest Pain Forms: [employer] (Romansh) Print Language: PASHTO
[2017-11-25 02:33] VITALS: BP 115/60; PULSE 78; RESP 18; O2SAT 99
--- NOTE | 2017-11-25 09:00 | RAD ---
Date of service: 11/25/2017 PROCEDURE: Radiographs of the Chest and Right Ribs. HISTORY: R sided rib pain COMPARISON: None available. TECHNIQUE: Frontal radiograph of the chest and multiple oblique radiographs of the right ribs were obtained. FINDINGS: RIGHT RIBS: No acute rib the fracture or focal lesion visualized. LUNGS: The lungs are well inflated and clear. There is a small calcified granuloma in the right lower lobe. PLEURA: No pneumothorax or pleural fluid. CARDIOVASCULAR: Normal sized heart. No pulmonary vascular congestion. OTHER FINDINGS: None. IMPRESSION: Clear lungs. No acute right rib fracture.
== END 2017-11-25 02:38 | disposition home or self-care (01) ==
LOC: H.ER 21:52
DX: R07.82 Intercostal pain (principal)
CPT/HCPCS: 71101; 96372; 99283; J1885

== ENCOUNTER 2018-01-30 14:26 | Emergency (ER) | payer SELFPAY ==
[2018-01-30 14:26] VITALS: BMI 36.6
[2018-01-30 14:41] VITALS: RESP 18; TEMP 98.5; O2SAT 99
--- NOTE | 2018-01-30 15:20 | ED PDOC ---
HPI: Abdomen Time Seen by Provider: 01/30/18 15:07 Chief Complaint (Nursing): Abdominal Pain Chief Complaint (Provider): Abdominal Pain History Per: Patient History/Exam Limitations: no limitations Onset/Duration Of Symptoms: Days (x1 week), Waxing/Waning Additional Complaint(s): Melvin Trujillo, a 38 year old female with past medical history of hypertension, presents to the emergency department with abdominal pain onset 1 week. Patient states the pain comes and goes all over her abdomen central around her umbilicus. She reports nonbloody non bilious vomiting onset today as well as watery diarrhea. Patient denies fever or taking pain medication. No further medical complaints. Past Medical History Reviewed: Historical Data, Nursing Documentation, Vital Signs Vital Signs: Last Vital Signs Temp 98.5 F 01/30/18 14:39 Pulse 60 01/30/18 14:39 Resp 18 01/30/18 14:39 BP 117/64 01/30/18 14:39 Pulse Ox 99 01/30/18 14:39 - Medical History PMH: HTN, Migraine - Surgical History Surgical History: (x 1) Denies: Cholecystectomy Other surgeries: tubal ligation - Family History Family History: States: Unknown Family Hx - Immunization History Hx Tetanus Toxoid Vaccination: Yes Hx Influenza Vaccination: No Hx Pneumococcal Vaccination: No - Home Medications Home Medications: Ambulatory Orders Medication Instructions Recorded Acetaminophen/Hydrocodone Bi 1 tab PO QID PRN #10 tab 10/10/14 [Vicodin 300 mg-5 mg] Ciprofloxacin HCl [Cipro] 500 mg PO BID 10 Days tab 10/10/14 Metronidazole [Flagyl] 500 mg PO QID 10 Days tab 10/10/14 Polymyxin/Trimethoprim Sulfate 1 - 2 drop OD DAILY #1 bottle 09/21/16 [Polytrim Ophth Soln] SUMAtriptan [Imitrex] 50 mg PO DAILY PRN #30 tab 09/21/16 Ondansetron [Zofran] 4 mg PO Q8H #10 tab 12/10/16 Pantoprazole Sodium [Protonix] 40 mg PO DAILY #30 tablet. 12/10/16 Famotidine [Pepcid] 1 - 2 tab PO DAILY PRN #20 tab 11/08/17 Ondansetron ODT [Zofran ODT] 4 mg PO TID #20 odt 11/08/17 Ciprofloxacin HCl [Cipro] 500 mg PO BID #14 tab 11/22/17 RX: Naproxen 375 mg PO Q8 PRN #21 tablet 11/22/17 Cyclobenzaprine [Cyclobenzaprine 10 mg PO BID #15 tab 11/25/17 HCl] - Allergies Allergies/Adverse Reactions: Allergies Allergy/AdvReac Type Severity Reaction Status Date / Time No Known Allergies Allergy Verified 10/04/17 20:32 Review of Systems ROS Statement: Except As Marked, All Systems Reviewed And Found Negative Constitutional: Negative for: Fever Gastrointestinal: Positive for: Vomiting, Abdominal Pain, Diarrhea (watery) Physical Exam - Reviewed Nursing Documentation Reviewed: Yes Vital Signs Reviewed: Yes - Physical Exam Appears: Positive for: Non-toxic, Uncomfortable Head Exam: Positive for: ATRAUMATIC, NORMAL INSPECTION, NORMOCEPHALIC Skin: Positive for: Normal Color, Warm, DRY Eye Exam: Positive for: EOMI, Normal appearance, PERRL ENT: Positive for: Normal ENT Inspection Neck: Positive for: Normal, Painless ROM Cardiovascular/Chest: Positive for: Regular Rate, Rhythm Respiratory: Positive for: Normal Breath Sounds. Negative for: Respiratory Distress Gastrointestinal/Abdominal: Positive for: Tenderness (diffuse). Negative for: Distended Back: Positive for: Normal Inspection Extremity: Positive for: Normal ROM Neurologic/Psych: Positive for: Alert, Oriented - Laboratory Results Result Diagrams: 01/30/18 15:20 01/30/18 15:20 - ECG O2 Sat by Pulse Oximetry: 99 (RA) Pulse Ox Interpretation: Normal - Progress Re-evaluation Time: 19:00 Condition: Re-examined, Improved Medical Decision Making Medical Decision Making: Time: 15:07 Initial Impression: abdominal pain, nausea, vomiting, diarrhea Differential: gastroenteritis, cholecystitis, small bowel obstruction, gallbladder disease, appendicitis Initial Plan: --CT abd/Pelvis --CMP --Lipase --Urine --Urine dipstick --CBC w/ differential --Sodium chloride 1000 ml IV --Toradol 30 mg IVP --US gallbladder Time: 1642 ABDOMEN US FINDINGS: LIVER: Measures 14.3 cm in length. Normal echogenicity of the liver parenchyma. No mass. No intrahepatic bile duct dilatation. GALLBLADDER: Unremarkable. No gallstones. No pericholecystic fluid collections or sonographic Kay sign COMMON BILE DUCT: Measures 4.0 mm. No stones. No dilatation. PANCREAS: Unremarkable as visualized. No mass. No ductal dilatation. RIGHT KIDNEY: Measures 10.1 x 5.0 x 5.9 cm in length. Normal echogenicity. No calculus, mass, or hydronephrosis. AORTA: No aneurysmal dilatation. IVC: Unremarkable. OTHER FINDINGS: None . IMPRESSION: Unremarkable limited right upper quadrant abdominal ultrasound. Time: 1827 CT abd/pelvis Impression: --BI acute intra-abdominal or pelvic abnormality. Scribe Attestation: Documented by Nallely Lovett, acting as a scribe for Elke Segura MD. Provider Scribe Attestation: All medical record entries made by the Scribe were at my direction and personally dictated by me. I have reviewed the chart and agree that the record accurately reflects my personal performance of the history, physical exam, medical decision making, and the department course for this patient. I have also personally directed, reviewed, and agree with the discharge instructions and disposition. Disposition - Clinical Impression Clinical Impression: Abdominal pain - Patient ED Disposition Is Patient to be Admitted: No Doctor Will See Patient In The: Office Counseled Patient/Family Regarding: Studies Performed, Diagnosis, Need For Followup - Disposition Referrals: [facility] [Outside] Disposition: Routine/Home Disposition Time: 19:00 Condition: GOOD Additional Instructions: MELVIN TRUJILLO, thank you for letting us take care of you today. Your provider was Elke Segura MD and you were treated for RT SIDE PAIN. The emergency medical care you received today was directed at your acute symptoms. If you were prescribed any medication, please fill it and take as directed. It may take several days for your symptoms to resolve. Return to the Emergency Department if your symptoms worsen, do not improve, or if you have any other problems. Please contact your doctor or call one of the physicians/clinics you have been referred to that are listed on the Patient Visit Information form that is included in your discharge packet. Bring any paperwork you were given at discharge with you along with any medications you are taking to your follow up visit. Our treatment cannot replace ongoing medical care by a primary care provider outside of the emergency department. Thank you for allowing the [facility] team to be part of your care today. If you had an X-Ray or CT scan: A Radiologist will review the ED reading if any change in treatment is needed we will contact you. If you had a blood, urine, or wound culture: It will take several days for the results, if any change in treatment is needed we will contact you. If you had an STI test: It will take 48 hours for the results. Please call after 1 week if you have not heard back. Instructions: Acute Abdomen (Belly Pain)
[2018-01-30] MEDS ORDERED: Sodium Chloride 0.9% 1,000 ML IV STA (15:21)
[2018-01-30 15:34] LABS: BASO # 0.1 K/uL (0.0-0.2); EOS # 1.1 K/uL (0.0-0.7); HEMOGLOBIN 13.3 g/dL (12.0-16.0); MEAN CORPUSCULAR HEMOGLOBIN 30.9 pg (27.0-31.0); RED CELL DISTRIBUTION WIDTH 13.2 % (11.5-14.5)
[2018-01-30 15:42] LABS: BASO % 0.8 % (0.0-2.0); EOS % 11.3 % (0.0-4.0); LYMPH # 2.8 K/uL (1.0-4.3); LYMPH % 28.5 % (20.0-40.0); MEAN CORPUSCULAR HGB CONC 33.6 g/dL (33.0-37.0); MEAN PLATELET VOLUME 9.4 fl (7.2-11.7); MONO # 0.6 K/uL (0.0-0.8); NEUT # 5.3 K/uL (1.8-7.0); NEUT % 53.4 % (50.0-75.0); RBC 4.3 Mil/uL (3.80-5.20); WHITE BLOOD COUNT 9.8 K/uL (4.8-10.8)
[2018-01-30 15:44] LABS: ALB/GLOB RATIO 1.2 (1.0-2.1); ALBUMIN 4.1 g/dL (3.5-5.0); ALT/SGPT 12 U/L (9-52); AST/SGOT 15 U/L (14-36); BLOOD UREA NITROGEN 18 mg/dl (7-17); CALCIUM 9.8 mg/dL (8.4-10.2); GFR NON-AFRICAN AMERICAN > 60; LIPASE 80 U/L (23-300)
--- NOTE | 2018-01-30 16:47 | US ---
Date of service: 01/30/2018 HISTORY: RUQ pain COMPARISON: Comparison made with CT scan abdomen pelvis abdominal ultrasound dated 11/22/2017 and 11/09/19 respectively. TECHNIQUE: Sonographic evaluation of the right upper quadrant of the abdomen. FINDINGS: LIVER: Measures 14.3 cm in length. Normal echogenicity of the liver parenchyma. No mass. No intrahepatic bile duct dilatation. GALLBLADDER: Unremarkable. No gallstones. No pericholecystic fluid collections or sonographic Kay sign COMMON BILE DUCT: Measures 4.0 mm. No stones. No dilatation. PANCREAS: Unremarkable as visualized. No mass. No ductal dilatation. RIGHT KIDNEY: Measures 10.1 x 5.0 x 5.9 cm in length. Normal echogenicity. No calculus, mass, or hydronephrosis. AORTA: No aneurysmal dilatation. IVC: Unremarkable. OTHER FINDINGS: None . IMPRESSION: Unremarkable limited right upper quadrant abdominal ultrasound.
[2018-01-30 19:30] VITALS: BP 121/69; PULSE 67
--- NOTE | 2018-01-31 10:00 | CT ---
Date of service: 01/30/2018 PROCEDURE: CT Abdomen and Pelvis without intravenous contrast HISTORY: right flank pain COMPARISON: Noncontrast abdomen and pelvis CT 11/22/2017. TECHNIQUE: Helical CT of the abdomen and pelvis was performed without oral or intravenous contrast as per referring physician request. Coronal and sagittal reformats were generated Contrast dose: None. Radiation dose: Total exam DLP = 915.35 mGy-cm. This CT exam was performed using one or more of the following dose reduction techniques: Automated exposure control, adjustment of the mA and/or kV according to patient size, and/or use of iterative reconstruction technique. FINDINGS: LOWER THORAX: Small calcified granuloma reiterated at the right lower lobe. LIVER: Unremarkable. No gross lesion or ductal dilatation. GALLBLADDER AND BILE DUCTS: Unremarkable. PANCREAS: Unremarkable. No gross lesion or ductal dilatation. SPLEEN: Unremarkable. ADRENALS: Unremarkable. No mass. KIDNEYS AND URETERS: Unremarkable. No hydronephrosis. No gross mass. VASCULATURE: Unremarkable. No aortic aneurysm. BOWEL: Unremarkable. No obstruction. No gross mural thickening. APPENDIX: Unremarkable. Normal appendix. PERITONEUM: Unremarkable. No free fluid. No free air. LYMPH NODES: Unremarkable. No enlarged lymph nodes. BLADDER: Unremarkable. REPRODUCTIVE: Unremarkable. BONES: No acute fracture. OTHER FINDINGS: None. IMPRESSION: Unremarkable non contrast enhanced CT of the abdomen and pelvis. No significant interval change appreciated in this unenhanced examination. Concordant preliminary report from [facility], 01/30/2018.
== END 2018-01-30 19:25 | disposition home or self-care (01) ==
LOC: H.ER 14:26
DX: R10.9 Unspecified abdominal pain (principal); I10 Essential (primary) hypertension
CPT/HCPCS: 74176; 76705; 80053; 83690; 85025; 96361; 96374; 99284; J1885; J7030

== ENCOUNTER 2018-05-18 06:51 | Emergency (ER) | payer SELFPAY ==
[2018-05-18 06:51] VITALS: BMI 36.6
[2018-05-18 07:37] VITALS: RESP 18; O2SAT 98
[2018-05-18] MEDS ORDERED: Sodium Chloride 0.9% 1,000 ML IV STA (07:50)
--- NOTE | 2018-05-18 08:13 | ED PDOC ---
HPI: Headache Time Seen by Provider: 05/18/18 07:31 Chief Complaint (Nursing): Headache Chief Complaint (Provider): Headache History Per: Patient History/Exam Limitations: no limitations Onset/Duration Of Symptoms: Hrs Current Symptoms Are (Timing): Still Present Additional Complaint(s): Patient is a 38 y/o female with a PMHx of HTN and migraines who presents to the ED for evaluation of a left-sided headache ongoing since last night. Patient claims she has been experiencing an increase in sensitivity to light and noise, as a result, making her feel nauseous. Patient states she took Tylenol last night but has experienced no relief. PCP: [facility] Past Medical History Reviewed: Historical Data, Nursing Documentation, Vital Signs Vital Signs: Last Vital Signs Temp 97.9 F 05/18/18 07:32 Pulse 73 05/18/18 07:32 Resp 18 05/18/18 07:32 BP 133/86 05/18/18 07:32 Pulse Ox 98 05/18/18 07:32 - Medical History PMH: HTN, Migraine - Surgical History Surgical History: (x 1) Denies: Cholecystectomy - Family History Family History: States: Unknown Family Hx - Immunization History Hx Tetanus Toxoid Vaccination: Yes Hx Influenza Vaccination: No Hx Pneumococcal Vaccination: No - Home Medications Home Medications: Ambulatory Orders Medication Instructions Recorded Acetaminophen/Hydrocodone Bi 1 tab PO QID PRN #10 tab 10/10/14 [Vicodin 300 mg-5 mg] Ciprofloxacin HCl [Cipro] 500 mg PO BID 10 Days tab 10/10/14 Metronidazole [Flagyl] 500 mg PO QID 10 Days tab 10/10/14 Polymyxin/Trimethoprim Sulfate 1 - 2 drop OD DAILY #1 bottle 09/21/16 [Polytrim Ophth Soln] Ondansetron [Zofran] 4 mg PO Q8H #10 tab 12/10/16 Pantoprazole Sodium [Protonix] 40 mg PO DAILY #30 tablet. 12/10/16 Famotidine [Pepcid] 1 - 2 tab PO DAILY PRN #20 tab 11/08/17 Ondansetron ODT [Zofran ODT] 4 mg PO TID #20 odt 11/08/17 Ciprofloxacin HCl [Cipro] 500 mg PO BID #14 tab 11/22/17 Naproxen 375 mg PO Q8 PRN #21 tablet 11/22/17 Cyclobenzaprine [Cyclobenzaprine 10 mg PO BID #15 tab 11/25/17 HCl] SUMAtriptan [Imitrex] 50 mg PO DAILY PRN #30 tab 05/18/18 - Allergies Allergies/Adverse Reactions: Allergies Allergy/AdvReac Type Severity Reaction Status Date / Time No Known Allergies Allergy Verified 10/04/17 20:32 Review of Systems ROS Statement: Except As Marked, All Systems Reviewed And Found Negative Gastrointestinal: Positive for: Nausea (from sensitivity to light and noise) Neurological: Positive for: Headache (left-sided) Physical Exam - Reviewed Nursing Documentation Reviewed: Yes Vital Signs Reviewed: Yes - Physical Exam Appears: Positive for: Non-toxic, No Acute Distress Head Exam: Positive for: ATRAUMATIC, NORMAL INSPECTION, NORMOCEPHALIC Skin: Positive for: Normal Color, Warm, Dry Eye Exam: Positive for: EOMI, Normal appearance, PERRL Neck: Positive for: Normal, Painless ROM, Supple Cardiovascular/Chest: Positive for: Regular Rate, Rhythm. Negative for: Murmur Respiratory: Positive for: Normal Breath Sounds. Negative for: Respiratory Distress Gastrointestinal/Abdominal: Positive for: Normal Exam, Soft. Negative for: Tenderness Back: Positive for: Normal Inspection. Negative for: L CVA Tenderness, R CVA Tenderness, Vertebral Tenderness Extremity: Positive for: Normal ROM. Negative for: Pedal Edema, Deformity Neurologic/Psych: Positive for: Alert, Oriented. Negative for: Motor/Sensory Deficits - ECG O2 Sat by Pulse Oximetry: 98 (RA) Pulse Ox Interpretation: Normal - Progress Re-evaluation Time: 11:47 Condition: Re-examined, Improved Medical Decision Making Medical Decision Making: Time: 0749 Impression: Headache. Most likely a typical migraine due to PMHx and patient's description of the pain not being the worst she has ever experienced. Plan: Urine IV Fluids Reglan 10 mg Sodium Chloride 0.9% 50 ml IVPB Toradol 30 mg IVP Scribe Attestation: Documented by Estevan Mckinney, acting as a scribe for Elke Segura MD. Provider Scribe Attestation: All medical record entries made by the Scribe were at my direction and personally dictated by me. I have reviewed the chart and agree that the record accurately reflects my personal performance of the history, physical exam, medical decision making, and the department course for this patient. I have also personally directed, reviewed, and agree with the discharge instructions and disposition. Disposition - Clinical Impression Clinical Impression: Migraine - Patient ED Disposition Is Patient to be Admitted: No Doctor Will See Patient In The: Office Counseled Patient/Family Regarding: Studies Performed, Diagnosis, Need For Followup - Disposition Referrals: [facility] [Outside] Disposition: Routine/Home Disposition Time: 11:48 Condition: GOOD Additional Instructions: MELVIN BANSAL, thank you for letting us take care of you today. Your provider was Elke Segura MD and you were treated for HEADACHE. The emergency medical care you received today was directed at your acute symptoms. If you were prescribed any medication, please fill it and take as directed. It may take several days for your symptoms to resolve. Return to the Emergency Department if your symptoms worsen, do not improve, or if you have any other problems. Please contact your doctor or call one of the physicians/clinics you have been referred to that are listed on the Patient Visit Information form that is included in your discharge packet. Bring any paperwork you were given at discharge with you along with any medications you are taking to your follow up visit. Our treatment cannot replace ongoing medical care by a primary care provider outside of the emergency department. Thank you for allowing the [facility] team to be part of your care today. If you had an X-Ray or CT scan: A Radiologist will review the ED reading if any change in treatment is needed we will contact you. If you had a blood, urine, or wound culture: It will take several days for the results, if any change in treatment is needed we will contact you. If you had an STI test: It will take 48 hours for the results. Please call after 1 week if you have not heard back. Prescriptions: SUMAtriptan [Imitrex] 50 mg PO DAILY PRN #30 tab PRN Reason: Headache Instructions: Migraine Headaches in Adults
[2018-05-18 12:35] VITALS: BP 104/68; PULSE 96; TEMP 98.1
== END 2018-05-18 12:30 | disposition home or self-care (01) ==
LOC: H.ER 06:51 → SUPCPDRO 06:51 → H.ER 12:30
DX: G43.909 Migraine, unspecified, not intractable, without status migrainosus (principal); I10 Essential (primary) hypertension
CPT/HCPCS: 81025; 96374; 96375; 99285; J1885; J2765; J7030

== ENCOUNTER 2018-07-04 11:12 | Emergency (ER) | payer SELFPAY ==
[2018-07-04 11:19] VITALS: BMI 37.4
--- NOTE | 2018-07-04 12:02 | ED PDOC ---
HPI: Female Pain Time Seen by Provider: 07/04/18 11:50 Chief Complaint (Nursing): Female Genitourinary Chief Complaint (Provider): Pelvic pain History Per: Patient History/Exam Limitations: no limitations Onset/Duration Of Symptoms: Days Current Symptoms Are (Timing): Still Present Quality Of Discomfort: "Pain" Additional History Per: Patient Additional Complaint(s): 38yo female, , EGA of 5 weeks, comes to ER reporting bilateral groin/pelvic pain for the past week. She describes the pain as "pressure" and states she had minimal vaginal bleeding yesterday. Otherwise, no nausea, vomiting or other complaints. PMD: [facility] Abnormal Vaginal Bleeding: Yes Last Menstral Period: 05/15/18 : 5 Para: 4 Past Medical History Reviewed: Historical Data, Nursing Documentation, Vital Signs Vital Signs: Last Vital Signs Temp 98.6 F 07/04/18 11:20 Pulse 75 07/04/18 11:20 Resp 17 07/04/18 11:20 BP 127/77 07/04/18 11:20 Pulse Ox 99 07/04/18 11:20 - Medical History PMH: HTN, Migraine - Surgical History Surgical History: (x 1) Denies: Cholecystectomy - Family History Family History: States: Unknown Family Hx - Immunization History Hx Tetanus Toxoid Vaccination: Yes Hx Influenza Vaccination: No Hx Pneumococcal Vaccination: No - Home Medications Home Medications: Ambulatory Orders Medication Instructions Recorded Acetaminophen/Hydrocodone Bi 1 tab PO QID PRN #10 tab 10/10/14 [Vicodin 300 mg-5 mg] Ciprofloxacin HCl [Cipro] 500 mg PO BID 10 Days tab 10/10/14 Metronidazole [Flagyl] 500 mg PO QID 10 Days tab 10/10/14 Polymyxin/Trimethoprim Sulfate 1 - 2 drop OD DAILY #1 bottle 09/21/16 [Polytrim Ophth Soln] Ondansetron [Zofran] 4 mg PO Q8H #10 tab 12/10/16 Pantoprazole Sodium [Protonix] 40 mg PO DAILY #30 tablet. 12/10/16 Famotidine [Pepcid] 1 - 2 tab PO DAILY PRN #20 tab 11/08/17 Ondansetron ODT [Zofran ODT] 4 mg PO TID #20 odt 11/08/17 Ciprofloxacin HCl [Cipro] 500 mg PO BID #14 tab 11/22/17 Naproxen 375 mg PO Q8 PRN #21 tablet 11/22/17 Cyclobenzaprine [Cyclobenzaprine 10 mg PO BID #15 tab 11/25/17 HCl] SUMAtriptan [Imitrex] 50 mg PO DAILY PRN #30 tab 05/18/18 Pnv No.95/Ferrous Fum/Folic AC 1 each PO DAILY #30 tablet 07/04/18 [ Vitamin Tablet] - Allergies Allergies/Adverse Reactions: Allergies Allergy/AdvReac Type Severity Reaction Status Date / Time No Known Allergies Allergy Verified 07/04/18 11:48 Review of Systems ROS Statement: Except As Marked, All Systems Reviewed And Found Negative Genitourinary Female: Positive for: Vaginal Bleeding (minimal), Pelvic Pain Physical Exam - Reviewed Nursing Documentation Reviewed: Yes Vital Signs Reviewed: Yes - Physical Exam Appears: Positive for: Non-toxic, No Acute Distress Head Exam: Positive for: ATRAUMATIC, NORMAL INSPECTION, NORMOCEPHALIC Skin: Positive for: Normal Color Eye Exam: Positive for: Normal appearance Neck: Positive for: Supple Cardiovascular/Chest: Positive for: Regular Rate, Rhythm. Negative for: Tachycardia Respiratory: Positive for: Normal Breath Sounds. Negative for: Respiratory Distress Gastrointestinal/Abdominal: Positive for: Soft, Tenderness (mild bilateral groin tenderness; (-) Kay's sign ). Negative for: Guarding, Rebound Neurological/Psych: Positive for: Awake, Alert - Laboratory Results Result Diagrams: 07/04/18 12:04 07/04/18 12:04 - ECG O2 Sat by Pulse Oximetry: 99 (RA) Pulse Ox Interpretation: Normal Medical Decision Making Medical Decision Makinyo female comes with reports of lower abdomen/pelvic pain Plan: -- Labs -- Urinalysis -- US OB [id number] US OB FINDINGS: UTERUS: Gestational sac: Single intrauterine gestation. Heart rate: 94 bpm. age (Ultrasound estimated): 5 weeks 6 days +/-0 weeks 3 days Julianna-gestational hemorrhage: None. Date of delivery (Ultrasound estimated) : 02/28/2019 Uterus measures 10.9 x 6.3 x 7.4 cm. Normal in size and appearance. CERVIX: Measures 3.9 cm. Long and closed. No cervical abnormality seen. RIGHT OVARY: Measures 2.7 x 1.5 x 2 cm. No mass lesion. Normal flow. LEFT OVARY: Measures 2.8 x 2.5 x 2.1 cm. No solid mass. Normal flow. Corpus luteum cyst seen at the left ovary measures 1.3 x 1.5 x 1.7 centimeter. FREE FLUID: None. OTHER FINDINGS: None. IMPRESSION: Suboptimal study due to the patient's body habitus. Single intrauterine live with ultrasound estimated gestational age of 5 weeks 6 days +/-0 weeks 3 days. Estimated date of delivery by ultrasound is 02/28/2019 Scribe Attestation: Documented by Rachel Villalba, acting as a scribe for Nesha Fonseca MD. Provider Scribe Attestation: All medical record entries made by the Scribe were at my direction and personally dictated by me. I have reviewed the chart and agree that the record a ccurately reflects my personal performance of the history, physical exam, medical decision making, and the department course for this patient. I have also personally directed, reviewed, and agree with the discharge instructions and disposition. Disposition - Clinical Impression Clinical Impression: Threatened - Disposition Disposition Time: 15:30 Condition: STABLE Additional Instructions: FOLLOW-UP WITH [facility] WITHIN 2 DAYS FOR REEVALUATION. Prescriptions: Pnv No.95/Ferrous Fum/Folic AC [ Vitamin Tablet] 1 each PO DAILY #30 tablet Instructions: Threatened Miscarriage, Bleeding With Forms: [employer] ([place]ese) Print Language: TURKMEN
[2018-07-04 12:25] LABS: BASO # 0.1 K/uL (0.0-0.2); BASO % 0.9 % (0.0-2.0); EOS # 0.9 K/uL (0.0-0.7); EOS % 9.6 % (0.0-4.0); HEMOGLOBIN 12.8 g/dL (12.0-16.0); LYMPH # 2.3 K/uL (1.0-4.3); LYMPH % 24.7 % (20.0-40.0); MEAN CELL VOLUME 90.3 fl (81.0-99.0); MEAN CORPUSCULAR HEMOGLOBIN 30.3 pg (27.0-31.0); MEAN CORPUSCULAR HGB CONC 33.6 g/dL (33.0-37.0); MONO # 0.7 K/uL (0.0-0.8); MONO % 7.5 % (0.0-10.0); NEUT # 5.4 K/uL (1.8-7.0); NEUT % 57.3 % (50.0-75.0); NRBC % 0.2 % (0.0-0.0); RBC 4.21 Mil/uL (3.80-5.20); RED CELL DISTRIBUTION WIDTH 14.1 % (11.5-14.5); WHITE BLOOD COUNT 9.4 K/uL (4.8-10.8)
[2018-07-04 12:31] LABS: ALB/GLOB RATIO 1.2 (1.0-2.1); ALT/SGPT 17 U/L (9-52); AST/SGOT 20 U/L (14-36); BLOOD UREA NITROGEN 12 mg/dl (7-17); CALCIUM 9.8 mg/dL (8.4-10.2); GFR NON-AFRICAN AMERICAN > 60
[2018-07-04 12:33] LABS: INR 1.1; PROTHROMBIN TIME 12.4 Seconds (9.8-13.1)
[2018-07-04 12:35] LABS: PARTIAL THROMBOPLASTIN TIME 33.4 Seconds (25.6-37.1)
--- NOTE | 2018-07-04 15:26 | US ---
Date of service: 07/04/2018 PROCEDURE: OB Pelvic Ultrasound HISTORY: Vaginal spotting LMP: 05/15/2018 COMPARISON: None available. FINDINGS: UTERUS: Gestational sac: Single intrauterine gestation. Heart rate: 94 bpm. age (Ultrasound estimated): 5 weeks 6 days +/-0 weeks 3 days Julianna-gestational hemorrhage: None. Date of delivery (Ultrasound estimated) : 02/28/2019 Uterus measures 10.9 x 6.3 x 7.4 cm. Normal in size and appearance. CERVIX: Measures 3.9 cm. Long and closed. No cervical abnormality seen. RIGHT OVARY: Measures 2.7 x 1.5 x 2 cm. No mass lesion. Normal flow. LEFT OVARY: Measures 2.8 x 2.5 x 2.1 cm. No solid mass. Normal flow. Corpus luteum cyst seen at the left ovary measures 1.3 x 1.5 x 1.7 centimeter. FREE FLUID: None. OTHER FINDINGS: None. IMPRESSION: Suboptimal study due to the patient's body habitus. Single intrauterine live with ultrasound estimated gestational age of 5 weeks 6 days +/-0 weeks 3 days. Estimated date of delivery by ultrasound is 02/28/2019
[2018-07-04 16:29] VITALS: BP 121/66; PULSE 80; RESP 18; TEMP 98.8; O2SAT 100
== END 2018-07-04 16:27 | disposition home or self-care (01) ==
LOC: H.ER 11:12
DX: O20.0 Threatened abortion (principal); O26.91 Pregnancy related conditions, unspecified, first trimester; R10.2 Pelvic and perineal pain; O16.1 Unspecified maternal hypertension, first trimester; Z3A.01 Less than 8 weeks gestation of pregnancy